=== PATIENT | male | born 1955 | race Caucasian/White ===

== ENCOUNTER 2023-05-22 10:36 | Emergency (ER) | payer MEDICARE | END 2023-05-22 11:15 | disposition home or self-care (01) | LOC: ERS 10:36 | DX: M54.50 Low back pain, unspecified (principal); I10 Essential (primary) hypertension; Z87.891 Personal history of nicotine dependence | CPT/HCPCS: 99283 ==

== ENCOUNTER 2023-10-24 11:07 | Day surgery (SDC) | payer MEDICARE ==
[2023-10-23 10:12] VITALS: BMI 35.5
== END 2023-10-24 12:45 | disposition home or self-care (01) ==
LOC: SDC 11:07
PROVIDERS: ATTEND Internal Medicine Cardiovascular Disease
DX: I48.4 Atypical atrial flutter (principal); R06.02 Shortness of breath; I10 Essential (primary) hypertension; E78.00 Pure hypercholesterolemia, unspecified; I35.1 Nonrheumatic aortic (valve) insufficiency; Z53.9 Procedure and treatment not carried out, unspecified reason; I83.93 Asymptomatic varicose veins of bilateral lower extremities; Z88.0 Allergy status to penicillin; Z88.2 Allergy status to sulfonamides; Z79.899 Other long term (current) drug therapy
CPT/HCPCS: 93005; 93010

== ENCOUNTER 2023-12-11 11:17 | Outpatient (CLI) | payer MEDICARE | END 2023-12-11 11:18 | disposition home or self-care (01) | LOC: DTY/OP 11:17 | PROVIDERS: ATTEND Family Medicine | DX: E66.09 Other obesity due to excess calories (principal); Z68.34 Body mass index [BMI] 34.0-34.9, adult; Z86.39 Personal history of other endocrine, nutritional and metabolic disease | CPT/HCPCS: 97802 ==

== ENCOUNTER 2024-04-05 22:20 | Emergency (ER) | payer MEDICARE ==
[2024-04-05] MEDS ORDERED: Lidocaine 10 ML, Aluminum & Magnesium Hydroxide 30 ML SSW SCH (23:15)
[2024-04-05] MEDS ORDERED: Ondansetron PF 4 MG/2 ML Vial ONE (23:30)
[2024-04-05] MEDS ORDERED: Famotidine/PF 20 mg/2ml Vial ONE (23:33)
[2024-04-05 23:39] LABS: #Basophils Less than 0.03 10x3/uL (0.0-0.2); %Basophils 0.3 % (0.0-1.0); %Eosinophils 0.4 % (0.0-10.0); Hematocrit 45.5 % (42.0-52.0); Hemoglobin 15.6 g/dL (14.0-18.0); Mean Corpuscular HGB CONC 34.3 g/dL (32.0-36.0); Mean Corpuscular Hemoglobin 30.1 pg (27.0-31.0); Mean Corpuscular Volume 87.7 fL (78.0-98.0); Mean Platelet Volume 10.5 fL (7.4-10.4); Platelet Count 147 10x3/uL (130-400); RBC Distribution Width 13.2 % (11.5-14.5); Red Blood Cell (RBC) Count 5.19 mill/uL (4.70-6.10)
[2024-04-05 23:53] LABS: INR-International Normal Ratio 1.3; PTT 31.1 sec (22.9-36.1); Prothrombin Time 15.9 sec (12.0-14.7)
[2024-04-06 00:18] LABS: ALT (SGPT) 20 U/L (8-55); Albumin 4.1 g/dL (3.4-4.8); Alkaline Phosphatase 82 U/L (40-110); Anion Gap 14 mmol/L (10-20); BUN (Urea Nitrogen) 16 mg/dL (8.4-25.7); Bilirubin, Total 1.4 mg/dL (0.2-1.2); Calc. Creatinine Clearance 0 mL/min (70-130); Calcium 9.2 mg/dL (7.8-10.44); Carbon Dioxide 25 mmol/L (23-31); Chloride 103 mmol/L (98-107); Estimated GFR 96; Globulin 3.7 g/dL (2.4-3.5); Glucose 146 mg/dL (80-115); Lipase 38 U/L (8-78); Magnesium 2.1 mg/dL (1.6-2.6); Potassium 4.4 mmol/L (3.5-5.1); Protein, Total 7.8 g/dL (5.8-8.1); Sodium 138 mmol/L (136-145)
[2024-04-06 00:24] LABS: Troponin I Less than 0.010 ng/mL (< 0.028)
[2024-04-06] MEDS ORDERED: Dexamethasone 10 MG/ML VIAL ONE (00:51)
[2024-04-06 01:39] LABS: AST (SGOT) 19 U/L (5-34)
== END 2024-04-06 01:22 | disposition home or self-care (01) ==
LOC: ERS 22:20
DX: R11.2 Nausea with vomiting, unspecified (principal); R10.10 Upper abdominal pain, unspecified; I10 Essential (primary) hypertension
CPT/HCPCS: 71045; 76705; 80053; 83690; 83735; 83880; 84484; 85025; 85610; 85730; 93005; 96361; 96374; 96375; 99284; J2405; J3490; J1100